=== PATIENT | male | born 2000 | race Caucasian/White ===

== ENCOUNTER 2021-03-05 10:46 | Inpatient (IN) ==
[2021-03-05] MEDS ORDERED: ONDANSETRON INJ 2 MG/ML 2 ML VIAL IV STA (11:58)
[2021-03-05] MEDS ORDERED: MoRPHine SULFATE 4 MG/ML 1 ML CARP\\VIAL IV STA ×2 (11:58→16:39)
[2021-03-05] MEDS ORDERED: cefTRIAXone SODIUM 2,000 MG/70 ML BAG IV STA (11:58)
[2021-03-05] MEDS ORDERED: SODIUM CHLORIDE 0.9% 1000ML 1,000 ML IV SCH (12:02)
--- NOTE | 2021-03-05 12:12 | Emergency Department Note ---
Impression & Plan Cellulitis of left elbow ED Provider Note CHIEF COMPLAINT: Left elbow pain and swelling x4 days HISTORY OF PRESENT ILLNESS: Patient is a [id number] 20-year-old male who presents the emergency department for evaluation of left elbow pain, redness and swelling. Symptoms started about 4 days ago, when he woke up with swelling in the left elbow. The swelling progressively worsened, he developed increased pain and redness, and had increased discomfort with movement of the elbow. He tried taking ibuprofen for discomfort. He currently rates his pain a 10/10. He does note that there was a small area at the tip of the elbow that was draining what looked like pus, he was covering this area with Neosporin and a Band-Aid. He denies any injury to the area, he did not fall, slip, scrape or bump the elbow. He does exercise and lifts weights frequently at a local gym. He denies fever, chills, nausea, vomiting or malaise. No prior history of skin infections or abscesses. No recent antibiotic use. He apparently got markedly worse in the last 12 to 24 hours, and was seen at [facility] this morning and referred to the emergency department for evaluation. REVIEW OF SYSTEMS: Review of systems as per HPI. All other systems reviewed were negative. 10 systems reviewed. PMH: Patient is otherwise healthy without chronic medical problems. Electronic medical records are reviewed and summarized as above/below. See Problem List. Tetanus is up-to-date. SOCIAL HISTORY: Patient is a [employer] student from [employer] who lives in a dorm with a roommate. Social EtOH, rare marijuana, denies IV drug use. Denies tobacco use. PHYSICAL EXAM: Vital Signs: Reviewed Nurse's notes. CONSTITUTIONAL: Patient is a nontoxic-appearing 20-year-old male who is awake and alert and in no acute distress. Vital signs are stable and he is afebrile. EYES: Pupils equal, round, reactive to light and accommodation. EOMs intact without nystagmus. Sclera are anicteric. CARDIOVASCULAR: Regular rate and rhythm. Peripheral pulses easily palpable. RESPIRATORY: Breath sounds equal and clear to auscultation without wheezes, rales, or rhonchi heard. Full and equal chest expansion without accessory muscle use or retractions. MUSCULOSKELETAL: Examination of the left elbow notes marked soft tissue swelling, erythema, increased warmth and cellulitic changes, centrally over the posterior elbow, extending up toward the triceps region and down the forearm slightly. Over the tip of the olecranon, there is a very small opening, with puslike drainage present. Elbow range of motion is limited secondary to pain. Hand, finger and shoulder range of motion are full. The left upper extremity is neurovascularly intact. There is lymphangitic streaking noted up the medial aspect of the arm toward the axilla. EMERGENCY DEPARTMENT COURSE: The patient was seen and assessed as above. Old records are reviewed. He presents to the emergency department for evaluation of left elbow pain, redness and swelling. On exam he appears to have a septic olecranon bursa with surrounding cellulitis. I did cleanse the area with normal saline solution, was able to express a small amount of pus from the opening over the olecranon process, and sent this off for Gram stain and culture. IV lock was initiated and laboratory studies were collected. CBC with differential, BMP, sed rate, CRP and blood cultures x2 were collected. X-ray of the left elbow was obtained, noting soft tissue swelling, no acute fractures or destructive lesions noted. He was treated with morphine 4 mg and Zofran 4 mg IV for pain, and given ceftriaxone 2 g IV after collection of cultures and blood work. A Covid/influenza/RSV swab was collected and was negative. Laboratory studies noted a 15,400 white count with left shift and bandemia noted. H&H is normal. ESR 21, CRP 2.46. Electrolytes are within normal limits. With the patient's permission, I did speak with his mother, Rolanda Hernandez, via telephone at [phone]. I discussed with her the pending ED work-up. Patient was reassessed after all of his laboratory studies and x-ray were back. He was told the results of his tests. I did speak with Romero Vidales PA-C with Dr. Young, who was on-call for orthopedics. They assessed the patient in the emergency department, and will admit to their service for IV antibiotics and further intervention as necessary. Please refer to orthopedic H&P and orders for further information. Differential diagnoses entertained included inflammatory versus septic olecranon bursitis, cellulitis, septic joint, DVT, superficial thrombophlebitis, necrotizing fasciitis, Lyme arthritis, among others. Past Med/Surg History Medical History No significant past medical history Surgical History S/P ACL reconstruction Social History Smoking Status: Never smoker Feels Safe at Home: Yes Allergies Allergies Allergy/AdvReac Type Severity Reaction Status Date / Time No Known Allergies Allergy Verified 03/05/21 11:58 Home Meds Home Medications Medication Instructions Recorded Confirmed No Known Home Medications 03/05/21 03/05/21 Results & Data (ED) Vital Signs Vital Signs - 24 hr 03/05/21 11:08 03/05/21 11:54 03/05/21 12:00 Temperature 36.8 C Temperature Source Oral Pulse Rate 81 Pulse Rate from SpO2 Sensor 69 69 Respiratory Rate 16 22 20 Blood Pressure 132/79 Blood Pressure Mean 96 Pulse Oximetry 98 98 98 Oxygen Delivery Method Room Air Room Air Room Air Sepsis Recent Fever Within 48 Hours No Sepsis New/Unexplained Change in Mental Status N/A Sepsis Action Taken by Nursing No Action Required 03/05/21 12:10 03/05/21 12:11 03/05/21 12:20 Temperature Temperature Source Pulse Rate 64 Pulse Rate from SpO2 Sensor 76 66 65 Respiratory Rate 17 20 23 Blood Pressure 171/80 H Blood Pressure Mean 110 Pulse Oximetry 99 99 99 Oxygen Delivery Method Room Air Room Air Room Air Sepsis Recent Fever Within 48 Hours Sepsis New/Unexplained Change in Mental Status Sepsis Action Taken by Nursing 03/05/21 12:30 03/05/21 12:40 03/05/21 12:50 Temperature Temperature Source Pulse Rate 65 62 69 Pulse Rate from SpO2 Sensor 65 Respiratory Rate 18 18 19 Blood Pressure 146/76 H Blood Pressure Mean 99 Pulse Oximetry 99 Oxygen Delivery Method Room Air Sepsis Recent Fever Within 48 Hours Sepsis New/Unexplained Change in Mental Status Sepsis Action Taken by Nursing 03/05/21 13:00 03/05/21 13:10 03/05/21 13:20 Temperature Temperature Source Pulse Rate 65 63 61 Pulse Rate from SpO2 Sensor Respiratory Rate 17 15 15 Blood Pressure 146/74 H Blood Pressure Mean 98 Pulse Oximetry 98 Oxygen Delivery Method Room Air Sepsis Recent Fever Within 48 Hours Sepsis New/Unexplained Change in Mental Status Sepsis Action Taken by Nursing 03/05/21 13:30 03/05/21 13:40 03/05/21 13:50 Temperature Temperature Source Pulse Rate 61 64 65 Pulse Rate from SpO2 Sensor Respiratory Rate 16 16 18 Blood Pressure 147/75 H Blood Pressure Mean 99 Pulse Oximetry 94 Oxygen Delivery Method Room Air Sepsis Recent Fever Within 48 Hours Sepsis New/Unexplained Change in Mental Status Sepsis Action Taken by Nursing 03/05/21 14:00 03/05/21 14:10 03/05/21 14:20 Temperature Temperature Source Pulse Rate 76 63 65 Pulse Rate from SpO2 Sensor Respiratory Rate 19 17 17 Blood Pressure 144/73 H Blood Pressure Mean 96 Pulse Oximetry 95 Oxygen Delivery Method Room Air Sepsis Recent Fever Within 48 Hours Sepsis New/Unexplained Change in Mental Status Sepsis Action Taken by Group Home Medications Current Medication List: was personally reviewed by me Laboratory Data Attestation: I reviewed the patient's lab results. Result diagrams: 03/05/21 11:29 03/05/21 11:29 Lab Results 03/05/21 03/05/21 03/05/21 Range/Units 11:29 11:29 11:29 WBC 15.48 H (4.8-10.8) K/uL RBC 4.73 (4.7-6.1) M/uL Hgb 15.7 (14.0-18.0) g/dL Hct 43.9 (42-52) % MCV 92.8 (80-100) fL MCH 33.2 (25-34) pg MCHC 35.8 (32-36) g/dL RDW Std Deviation 40.9 (36.4-46.3) fL RDW Coeff of Tl 12.0 (11.5-14.5) % Plt Count 302 (130-400) K/uL MPV 9.9 (7.4-10.4) fL Immature Gran % (Auto) 0.3 % Neut % (Auto) 73.0 % Lymph % (Auto) 13.1 % Dickey % (Auto) 10.3 % Eos % (Auto) 3.2 % Baso % (Auto) 0.1 % Neut # (Auto) 11.31 H (1.4-6.5) K/uL Lymph # (Auto) 2.03 (1.2-3.4) K/uL Dickey # (Auto) 1.59 H (0.11-0.59) K/uL Eos # (Auto) 0.49 (0-0.5) K/uL Baso # (Auto) 0.02 (0-0.2) K/uL Immature Gran # (Auto) 0.04 H (0.00-0.02) K/uL ESR 21 H (0-15) mm/hr Sodium 138 (136-145) mmol/L Potassium 4.4 (3.5-5.1) mmol/L Chloride 106 (98-107) mmol/L Carbon Dioxide 27 (21-32) mmol/L Anion Gap 5.0 (3-11) BUN 16 (7-18) mg/dl Creatinine 1.11 (0.6-1.4) mg/dl Est Cr Clr Drug Dosing 110.5 ml/min Est GFR ( Amer) 111.0 Est GFR (Non-Af Amer) 95.8 BUN/Creatinine Ratio 14.4 (10-20) Glucose 95 (70-99) mg/dl Calcium 9.1 (8.5-10.1) mg/dl C-Reactive Protein 2.46 H (0-0.29) mg/dl COVID-19 Eval Order SARS-CoV-2 (PCR) (Negative) Influenza Type A (PCR) (Neg) Influenza Type B (PCR) (Neg) RSV (RT-PCR) (Neg) 03/05/21 03/05/21 Range/Units 12:10 12:10 WBC (4.8-10.8) K/uL RBC (4.7-6.1) M/uL Hgb (14.0-18.0) g/dL Hct (42-52) % MCV (80-100) fL MCH (25-34) pg MCHC (32-36) g/dL RDW Std Deviation (36.4-46.3) fL RDW Coeff of Tl (11.5-14.5) % Plt Count (130-400) K/uL MPV (7.4-10.4) fL Immature Gran % (Auto) % Neut % (Auto) % Lymph % (Auto) % Dickey % (Auto) % Eos % (Auto) % Baso % (Auto) % Neut # (Auto) (1.4-6.5) K/uL Lymph # (Auto) (1.2-3.4) K/uL Dickey # (Auto) (0.11-0.59) K/uL Eos # (Auto) (0-0.5) K/uL Baso # (Auto) (0-0.2) K/uL Immature Gran # (Auto) (0.00-0.02) K/uL ESR (0-15) mm/hr Sodium (136-145) mmol/L Potassium (3.5-5.1) mmol/L Chloride (98-107) mmol/L Carbon Dioxide (21-32) mmol/L Anion Gap (3-11) BUN (7-18) mg/dl Creatinine (0.6-1.4) mg/dl Est Cr Clr Drug Dosing ml/min Est GFR ( Amer) Est GFR (Non-Af Amer) BUN/Creatinine Ratio (10-20) Glucose (70-99) mg/dl Calcium (8.5-10.1) mg/dl C-Reactive Protein (0-0.29) mg/dl COVID-19 Eval Order CovFluRsv at [facility] SARS-CoV-2 (PCR) NEGATIVE (Negative) Influenza Type A (PCR) Negative (Neg) Influenza Type B (PCR) Negative (Neg) RSV (RT-PCR) Negative (Neg) Administered Medications Sodium Chloride (Nss 1000ml) 1,000 mls @ 250 mls/hr IV .Q4H SUHA Stop: 04/04/21 12:14 Last Admin: 03/05/21 12:49 Dose: 250 mls/hr Documented by: [id number] Discontinued Medications Ceftriaxone Sodium (Rocephin) 2,000 mg in 70 mls @ 140 mls/hr IV NOW STA Stop: 03/05/21 12:27 Last Infusion: 03/05/21 12:48 Dose: 0 mls/hr Documented by: [id number] Admin: 03/05/21 12:09 Dose: 140 mls/hr Documented by: [id number] Sodium Chloride (Nss 1000ml) 1,000 mls @ 999 mls/hr IV .Q1H1M SUHA Stop: 03/05/21 13:02 Last Infusion: 03/05/21 14:13 Dose: 0 mls/hr Documented by: [id number] Admin: 03/05/21 12:49 Dose: 999 mls/hr Documented by: [id number] Morphine Sulfate (Morphine Sulfate 4 Mg/Ml 1 Ml Carp\Vial) 4 mg IV NOW STA Stop: 03/05/21 11:59 Last Admin: 03/05/21 12:09 Dose: 4 mg Documented by: [id number] Ondansetron HCl (Ondansetron Inj 2 Mg/Ml 2 Ml Vial) 4 mg IV NOW STA Stop: 03/05/21 11:59 Last Admin: 03/05/21 12:09 Dose: 4 mg Documented by: [id number] Imaging Data Attestation: I personally reviewed and interpreted this imaging study as follows: Radiologist's Impression: Elbow X-Ray 03/05/21 11:58 XR elbow LT min 3V routine CLINICAL HISTORY: CELLULITIS/BURSITIS COMPARISON: None. DISCUSSION: No fractures or dislocations are visualized. There is posterior soft tissue edema. There is no radiographic evidence of joint effusion. No destructive lesions are evident. IMPRESSION: 1. Posterior soft tissue edema 2. No acute fractures 3. No destructive lesions identified ACT 112: Negative or not required by law. Electronically signed by: True Al M.D. 03/05/2021 12:42 PM Discharge Plan Visit Data Chief Complaint: Elbow Injury/Pain Stated Complaint: LEFT ELBOW INFECTION ED Provider: Jane Babb ED Midlevel Provider: Elsie Watkins Discharge Problem: Cellulitis of left elbow Patient Disposition: Admitted As Inpatient Forms Stand Alone Forms: My My[employer] Prescriptions Prescriptions: No Action No Known Home Medications RF: 0 Referrals Referrals: [facility] [Primary Care Provider] -
[2021-03-05 12:40] LABS: Basophils # (auto) 0.02 K/uL (0-0.2); Basophils % (auto) 0.1 %; Eosinophils # (auto) 0.49 K/uL (0-0.5); Eosinophils % (auto) 3.2 %; Hematocrit (blood only) 43.9 % (42-52); Hemoglobin 15.7 g/dL (14.0-18.0); Immature Granulocytes # (auto) 0.04 K/uL (0.00-0.02); Immature Granulocytes % (auto) 0.3 %; Lymphocytes # (auto) 2.03 K/uL (1.2-3.4); Lymphocytes % (auto) 13.1 %; Mean Corpuscular Hemoglobin 33.2 pg (25-34); Mean Corpuscular Hgb Conc 35.8 g/dL (32-36); Mean Corpuscular Volume 92.8 fL (80-100); Mean Platelet Volume 9.9 fL (7.4-10.4); Monocytes # (auto) 1.59 K/uL (0.11-0.59); Monocytes % (auto) 10.3 %; Neutrophils # (auto) 11.31 K/uL (1.4-6.5); Platelet Count 302 K/uL (130-400); RDW Standard Deviation 40.9 fL (36.4-46.3); Red Blood Count 4.73 M/uL (4.7-6.1); White Blood Count 15.48 K/uL (4.8-10.8)
--- NOTE | 2021-03-05 12:43 | XRay Report ---
XR elbow LT min 3V routine CLINICAL HISTORY: CELLULITIS/BURSITIS COMPARISON: None. DISCUSSION: No fractures or dislocations are visualized. There is posterior soft tissue edema. There is no radiographic evidence of joint effusion. No destructive lesions are evident. IMPRESSION: 1. Posterior soft tissue edema 2. No acute fractures 3. No destructive lesions identified ACT 112: Negative or not required by law. Electronically signed by: True Al M.D. 03/05/2021 12:42 PM
[2021-03-05] MEDS: SODIUM CHLORIDE 0.9% 1000ML 1,000 ML IV SCH ×2 (12:49→20:10)
[2021-03-05 13:11] LABS: Influenza A virus by PCR Negative (Neg); Influenza B virus by PCR Negative (Neg); RSV by PCR Negative (Neg); SARS CoV2 RNA(COVID-19) InHosp NEGATIVE (Negative)
[2021-03-05 13:13] LABS: BUN Creatinine Ratio 14.4 (10-20); C Reactive Protein 2.46 mg/dl (0-0.29); Calcium 9.1 mg/dl (8.5-10.1); Creatinine Clr Calc Pharmacy 110.5 ml/min; Est GFR (Non-African American) 95.8
[2021-03-05 13:23] LABS: Potassium 4.4 mmol/L (3.5-5.1)
--- NOTE | 2021-03-05 16:20 | History & Physical Report ---
Date of Service March 05, 2021 Assessment & Plan (1) Cellulitis of left elbow: He was seen in the ER by Dr. Young. We did aspirate the olecranon bursa and got just a minimal amount of blood out of it. We will still send this off for gram stain and cultures. There is also a culture swab pending from the ER. We will admit him tonight for IV antibiotics. It does not look like he needs an I and D yet at this time but we will watch this closely. We will make him npo after midnight just in case. We will start some vancomycin and consult pharmacy. Arm sling for comfort. This was discussed with his parents as well. History of Present Illness Chief Complaint: . left elbow pain Primary Care Provider: [facility] . 20 y/o right hand dominant male, student at [employer], from [place], presented to the ER with left elbow pain and swelling. He feels slightly sick. Denies fever. Has had elbow pain for about 4 days. Denies injury, or any puncture to the skin. There is one area that he has noticed some purulent drainage from. No other complaints. Allergies Allergy/AdvReac Type Severity Reaction Status Date / Time No Known Allergies Allergy Verified 03/05/21 11:58 Home Medications Medication Instructions Recorded Confirmed Type No Known Home Medications 03/05/21 03/05/21 History Past Med/Surg History Medical History No significant past medical history Surgical History S/P ACL reconstruction Social History Smoking Status: Never smoker Feels Safe at Home: Yes Review of Systems All systems reviewed & are unremarkable except as noted in HPI & below. Physical Exam . Constitutional well developed and well nourished; no acute distress Respiratory normal respiratory effort Cardiovascular Vessels: radial pulses present Extremities: normal capillary refill Musculoskeletal swelling and erythema of the posterior left elbow. He is tender to palpation around the left elbow and has limited range of motion. There is one pustule that we were able to express some purulent drainage from. Skin + erythema Neurologic normal touch/pain/proprioception Psychiatric Orientation: alert and oriented x 3 Results & Data Results & Data Laboratory Results . Diagnostic Findings . xrays and labs reviewed. ESR, CRP, and WBC slightly elevated. xray was normal. PG Care Time/CCT Total # of Minutes Spent Total Time Spent with Patient: Total time spent is greater than 50% in coordination of care (as documented) at patient's floor/unit and/or counseling patient: Coding Level of Care Code 79206 Initial Inpt Care Lvl 2 Diagnoses Cellulitis of left elbow L03.114
--- NOTE | 2021-03-05 18:47 | Hospitalist Consultation ---
Date of Consultation March 05, 2021 Assessment & Plan (1) Cellulitis of left elbow: Previously healthy 20 yo right handed male presents with atraumatic acute progressive erythema, swelling, pain and drainage from the left elbow consistent with septic bursitis with cellulitis improving since starting Ceftriaxone WBC 15, HR and BP wnl XR w/ soft tissue swelling and no destructive lesions gram stain w/ no organisms and moderate WBC - MRI ordered - continue Ceftriaxone, given patient is immunocompetent, does not have systemic signs of toxicity, has improved with antibiotic therapy and the infection is not associated with a medical devices - continue IVF - potential drainage with Orthopedics if warranted Code: full Diet: regular DVT: ambulation Supervising Physician Co-Signing Physician Notes I personally saw and examined the patient. I verified all nixon points and agree with Dr Cody Steiner MD with the following exceptions and/or additions: 20 yo male 4 day history of initially bursitis which he expressed pus from then subsequently developed surrounding cellulitis O/E non septic appearing. erythema already improved after ceftriaxone given in ER earlier in the day. No longer tracking up arm as patient previously described and marked area. Left arm cellulitis and olecranon septic bursitis - ceftriaxone 2g IV daily should be adequate. No history of MRSA or immunocompromised state to warrant MRSA coverage therefore vancomycin discontinued. Will await surgical gram stain and cultures for further antibiotic selection. History of Present Illness Reason for Consultation: Antibiotic management Requesting Physician: Regan Vidales PA-C Attending Physician: Dr Gregorio Young MD History of Present Illness Greg Hernandez is a right hand dominant male with 4 days of progressively worsening left elbow pain, redness and swelling. He initially noted mild swelling and sore elbow. He used rubbing alcohol and neosporin on the area but noted that it continued to worsen specifically over the last 1-2 days. He had no prior injury but did not he had a pimple in that area. he did have some numbness in his 3rd 4th and 5th fingers and pain with closing his hand. He noted that he had pain along the biceps that worsened over the last 1-2 hours and he related to having his hand up. He is UTD on his vaccinations. His birthday is on and was concerned with how long he would need to be in the hospital for treatment. Social: comes from [employer] [place], sexually active with 2 female partners in the last 6 months using condoms. Vaping 1 jennifer pod over 1-2 weeks. ETOH use includes 1-2 times per week approx. 8 drinks. marijuana use, no IVDU. pMHx.: none Meds: none sugery: ACL repair while playing lacrosse Family Hx.: denies family history of recurrent infections Allergies Allergy/AdvReac Type Severity Reaction Status Date / Time No Known Allergies Allergy Verified 03/05/21 11:58 Home Medications Medication Instructions Recorded Confirmed Type No Known Home Medications 03/05/21 03/05/21 History Patient History Medical History No significant past medical history Surgical History S/P ACL reconstruction Social History Smoking Status: Current some day smoker Tobacco Type: E-cigarettes / Vaping Do You Dip or Chew Tobacco: No; Hx Alcohol Use: No Hx Substance Use: No Preferred Language: Chinese Communication Ability: Effective Weapons Designer Required: No Beliefs That Will Affect Care: None marital status: Current Living Situation: Alone Other Information That Helps Us Care for You: No Feels Safe at Home: Yes Safety Concerns: Feels Safe At This Time Assistive Devices: None Review of Systems Review of Systems: Constitutional: denies fevers, chills, nausea, vomiting admits fatigue, diaphoresis, weight change Head: denies trauma, LOC, confusion, lightheadedness Neurologic: denies syncope admits numbness and tingling and pre-syncope assoc. with pain ENT: denies rhinorrhea, stuffiness, sneezing Cardiac: denies chest pain, palpitations Pulm.: denies cough, shortness of breath GI: denies diarrhea, constipation Physical Exam Constitutional: WD/WN, vitals as above Eyes: PERRL, conjunctivae normal, anicteric sclerae ENMT: external ear and nose normal, oropharynx normal Neck: normal visual inspection Respiratory: normal respiratory effort, lungs clear to auscultation Cardiovascular: RRR, no murmur, no edema Gastrointestinal (Abdomen): normal bowel sounds, soft, nontender, no hepatosplenomegaly Musculoskeletal: Left elbow: - swelling with warmth slightly pink diffusely without any tracking or sharp boarders - tender to palpation throughout the elbow and along the biceps - pulse 2+ radial - sensation intact in the median, ulnar and radial distribution - decreased grasp 4/5 (grimace while attempting) Results & Data Results & Data [facility] Vital Signs (Past 12 Hours) Vital Signs Temp Pulse Resp BP Pulse Ox 03/05/21 17:30 84 22 136/71 96 03/05/21 17:00 82 23 135/63 96 03/05/21 16:30 79 19 173/76 H 03/05/21 16:00 77 19 160/77 H 03/05/21 15:30 73 20 145/73 H 96 03/05/21 15:00 76 20 160/85 H 03/05/21 14:30 74 18 149/83 H 03/05/21 14:20 65 17 03/05/21 14:10 63 17 03/05/21 14:00 76 19 144/73 H 95 03/05/21 13:50 65 18 03/05/21 13:40 64 16 03/05/21 13:30 61 16 147/75 H 94 03/05/21 13:20 61 15 03/05/21 13:10 63 15 03/05/21 13:00 65 17 146/74 H 98 03/05/21 12:50 69 19 03/05/21 12:40 62 18 03/05/21 12:30 65 18 146/76 H 99 03/05/21 12:20 64 23 99 03/05/21 12:11 20 171/80 H 99 03/05/21 12:10 17 99 03/05/21 12:00 20 98 03/05/21 11:54 22 98 03/05/21 11:08 36.8 C 81 16 132/79 98 Diagnostic Findings XR elbow LT min 3V routine IMPRESSION: 1. Posterior soft tissue edema 2. No acute fractures 3. No destructive lesions identified Medications Administered ER medications given: Ceftriaxone 2g IV Morphine 4 mg IV x2 NSS 1L bolus Ondansetron 4 mg IV CBC Results Results Complete Blood Count Results: RBC 4.49 M/uL (4.7-6.1) L 03/06/21 WBC 13.99 K/uL (4.8-10.8) H 03/06/21 Hgb 14.6 g/dL (14.0-18.0) 03/06/21 Hct 41.7 % (42-52) L 03/06/21 Plt Count 263 K/uL (130-400) 03/06/21 Chemistry ([facility]) Results [facility] Results: Sodium 135 mmol/L (136-145) L 03/06/21 Potassium 4.1 mmol/L (3.5-5.1) 03/06/21 Chloride 104 mmol/L (98-107) 03/06/21 BUN 10 mg/dl (7-18) 03/06/21 Creatinine 1.03 mg/dl (0.6-1.4) 03/06/21 Glucose 101 mg/dl (70-99) H 03/06/21 Resident Activity Tracking Resident Involvement: Resident Care Provided Care Provided: Adult [facility]
[2021-03-05] MEDS ORDERED: diphenhydrAMINE Capsule 25 MG CAP PO PRN (19:19)
[2021-03-05] MEDS ORDERED: VANCOMYCIN CONSULT ACTIVE PRN ×2 (19:19)
[2021-03-05] MEDS ORDERED: VANCOMYCIN HCL 2,000 MG in SODIUM CHLORIDE 0.9% 500 ML IV ONE (20:00)
[2021-03-05] MEDS: oxyCODONE HCL IR 5 MG TAB (IMMEDIATE RELEASE) PO PRN (20:16)
[2021-03-06] MEDS: oxyCODONE HCL IR 5 MG TAB (IMMEDIATE RELEASE) PO PRN ×4 (01:26→23:00)
[2021-03-06] MEDS ORDERED: VANCOMYCIN HCL 1,250 MG in SODIUM CHLORIDE 0.9% 250 ML IV SCH (06:00)
[2021-03-06 06:44] LABS: Basophils # (auto) 0.03 K/uL (0-0.2); Basophils % (auto) 0.2 %; Eosinophils # (auto) 0.39 K/uL (0-0.5); Eosinophils % (auto) 2.8 %; Hematocrit (blood only) 41.7 % (42-52); Hemoglobin 14.6 g/dL (14.0-18.0); Immature Granulocytes # (auto) 0.03 K/uL (0.00-0.02); Immature Granulocytes % (auto) 0.2 %; Lymphocytes # (auto) 3.16 K/uL (1.2-3.4); Lymphocytes % (auto) 22.6 %; Mean Corpuscular Hemoglobin 32.5 pg (25-34); Mean Corpuscular Volume 92.9 fL (80-100); Mean Platelet Volume 9.5 fL (7.4-10.4); Monocytes # (auto) 1.65 K/uL (0.11-0.59); Monocytes % (auto) 11.8 %; Neutrophils # (auto) 8.73 K/uL (1.4-6.5); Neutrophils % (auto) 62.4 %; Platelet Count 263 K/uL (130-400); RDW Coefficient of Variation 12.1 % (11.5-14.5); RDW Standard Deviation 41.1 fL (36.4-46.3); Red Blood Count 4.49 M/uL (4.7-6.1); White Blood Count 13.99 K/uL (4.8-10.8)
[2021-03-06 07:17] LABS: BUN Creatinine Ratio 9.3 (10-20); Calcium 8.4 mg/dl (8.5-10.1); Creatinine Clr Calc Pharmacy 119.1 ml/min; Est GFR (African American) 121.5; Est GFR (Non-African American) 104.8; Potassium 4.1 mmol/L (3.5-5.1)
[2021-03-06] MEDS ORDERED: VANCOMYCIN CONSULT ACTIVE PRN (07:58)
[2021-03-06] MEDS: ceFAZolin 2000MG 2,000 MG/15 ML SYR IV SCH ×3 (08:29→23:00)
[2021-03-06] MEDS ORDERED: VANCOMYCIN HCL 1,500 MG in SODIUM CHLORIDE 0.9% 500 ML IV SCH (08:30)
--- NOTE | 2021-03-06 09:10 | Magnetic Resonance Report ---
MR elbow LT wo con CLINICAL HISTORY: 20 years-old Male with cellulitis to elbow. Acute pain and swelling of the left el bow with reported cellulitis. COMPARISON: Left abnormal radiographs of same day. TECHNIQUE: Multiplanar, multi sequence MRI of the left elbow was performed without intravenous contra st. FINDINGS: Motion degraded exam. The study is also limited secondary to patient positioning. LATERAL COLLATERAL LIGAMENT: The lateral collateral ligaments including the lateral ulnar collateral ligament are intact and unremarkable in appearance. COMMON EXTENSOR TENDON: The common extensor origin from the lateral epicondyle is suboptimally visua lized secondary to large amount of adjacent edema however appears intact. No evidence of tendinosis or tear to suggest lateral epicondylitis. MEDIAL COLLATERAL LIGAMENT: The ulnar collateral ligament, including the anterior and posterior band s, is intact and unremarkable in appearance. COMMON FLEXOR TENDON: The common flexor origin from the medial epicondyle is normal in appearance. No evidence of tendinosis or tear to suggest medial epicondylitis. MUSCLES: The biceps and brachialis tendon insertions are normal in appearance. Mild intramuscular ed leslee is noted within the distal aspect of the long head of the triceps with additional mild edema note d within the flexor carpi ulnaris (image 31 series 16). The triceps tendon insertion on the olecranon is also unremarkable in appearance. ULNAR NERVE: The ulnar nerve is normally located in the ulnar sulcus and is unremarkable in appearan ce. BONE MARROW: Bone marrow is normal in signal without evidence of fracture, marrow contusion or marro w occupying lesion. SOFT TISSUES: There is extensive subcutaneous edema of the elbow, distal upper arm and proximal fore arm which is most pronounced dorsally with associated deep tissue edema tracking along the myofascial planes. No loculated fluid collection. IMPRESSION: 1. Limited exam as above. 2. Extensive subcutaneous edema of the distal upper arm, elbow and proximal forearm, most pronounced dorsally suggestive of cellulitis. No loculated abscess identified. 3. Mild intramuscular edema of the distal long head of the triceps and flexor carpi ulnaris may refle ct associated myositis versus acute or subacute muscle strain. 4. No acute fracture, bone marrow edema or osseous erosions. 5. No joint effusion. ACT 112: Negative or not required by law. The above report was generated using voice recognition software. It may contain grammatical, syntax o r spelling errors. Dictated: 03/06/2021 8:14 AM Transcribed: 03/06/2021 8:46 AM Carmela [id number] [email or web address] Electronically signed by: Tony Armendariz M.D. 03/06/2021 9:08 AM
--- NOTE | 2021-03-06 09:19 | Progress Notes ---
DATE: 03/06/2021 SUBJECTIVE: A 20-year-old male admitted yesterday with a left elbow cellulitis and possible septic olecranon bursitis. He is doing a bit better this morning. He has been on some IV antibiotics. Still painful, but slightly improved. No new complaints. OBJECTIVE: VITAL SIGNS: Temperature 36.5. Vital signs stable. EXTREMITIES: Examination of the left arm reveals the cellulitis to be significantly improved. Swelling is improved as well. Just a little bit more just thickening and stiffness of the soft tissues. Less bogginess. Elbow motion is about 15 degrees short of full extension to 90 degrees of flexion. There are no signs of joint effusion. No further drainage or purulence. MRI: I did review his MRI. I reviewed this with the radiologist. It did not feel there are any signs of pus accumulation or abscess pockets. No elbow joint effusion. No signs of bone involvement. ASSESSMENT: A 20-year-old male with left elbow/upper extremity cellulitis. Does not look to be any localized fluid collections or pus. It does seem to be significantly improved just even after 12 hours of antibiotics. PLAN: We are going to keep him in the hospital today for some additional IV antibiotics. If he make continued improvements, we can hopefully discharge him on p.o. antibiotics. If the area of pus or purulence does localize, he will obviously need an irrigation and debridement. I think that is unlikely at this time.
--- NOTE | 2021-03-06 10:21 | Pharmacy Report ---
Pharmacy Abx Initial Consult - Date of Service March 06, 2021 - Pharmacy Dosing Scope Date of Consult: 03/06 Consultation requested by: Dr. Bejarano Pharmacy is consulted to initiate vancomycin IV/PO dosing therapy, order appropriate labs and adjust drug dose/frequency. - Subjective The patient is a 20 year old M admitted on 03/05/21 18:48. - Objective Height: 5 ft 10 in Weight: 80 kg Vital Signs (Past 12hrs): Vital Signs Temp Pulse Pulse Resp BP Pulse Ox 03/06/21 08:34 71 139/76 94 03/06/21 07:06 36.5 C 71 16 124/74 97 Lab Results (24hrs): Laboratory Tests (24 Hours) 03/06/21 03/06/21 03/05/21 06:22 06:22 11:29 WBC 13.99 H Neut # (Auto) 8.73 H ESR 21 H Creatinine 1.03 Est Cr Clr Drug Dosing 119.1 C-Reactive Protein 03/05/21 03/05/21 11:29 11:29 WBC 15.48 H Neut # (Auto) 11.31 H ESR Creatinine 1.11 Est Cr Clr Drug Dosing 110.5 C-Reactive Protein 2.46 H Micro Results: 03/05/21 Unknown Gram Stain - Final Elbow,Left 03/05/21 11:55 Gram Stain - Final Elbow,Left 03/05/21 12:39 Aerobic Blood Culture - Pending Blood Anaerobic Blood Culture - Pending 03/05/21 11:29 Aerobic Blood Culture - Pending Blood Anaerobic Blood Culture - Pending - Assessment & Plan Assessment 20 year old M [] Plan Vancomycin/cefazolin for treatment of left elbow bursitis/cellulitis. Cultures growing staph sp. Vancomycin continued for MRSA coverage until resulted. Ceftriaxone adjusted to cefazolin. Vancomycin IV * Patient meets criteria for vancomycin AUC dosing nomogram AUC/NANI is the preferred PK/PD target for vancomycin Target AUC/NANI = 400-600 AUC guided dosing is effective and associated with decreased risk of nephrotoxicity Will order trough level prior to 4th maintenance dose. Pharmacy will continue to follow and will adjust dose/frequency as necessary. Thank you.
--- NOTE | 2021-03-06 11:14 | Billing Data ---
Date of Service March 05, 2021 Coding Level of Care Code 40854 Inpt Consult Level 4 History Detailed Exam Detailed Medical Decision Making Low Complexity
[2021-03-06] MEDS ORDERED: cefTRIAXone SODIUM 2,000 MG in DEXTROSE 5% 50 ML IV SCH (12:00)
--- NOTE | 2021-03-06 14:49 | Hospitalist Progress Note ---
Date of Service March 06, 2021 Assessment & Plan (1) Cellulitis of left elbow: MRI on 03/05 showed extensive cellulitis as well as "mild intramuscular edema of the distal long head of the triceps and flexor carpi ulnaris may reflect associated myositis." - Continue vanc/ceftriaxone until wound and aspiration culture have sensitivities. Community MRSA widespread enough that I feel MRSA coverage has few downsides until proven negative. Admission and Anticipated Discharge Date Admission Date: March 05, 2021 Subjective Feels it is doing better. No major concerns at present. Reports no fevers/chills, chest pain, shortness of breath, abdominal pain, nausea, or vomiting. Physical Exam Constitutional: WD/WN, vitals as above Eyes: EOM intact bilaterally; no conjunctival abnormality ENMT: external ear and nose normal, oropharynx normal Neck: trachea midline, no thyromegaly normal visual inspection Respiratory: normal respiratory effort, lungs clear to auscultation no respiratory distress Cardiovascular: RRR, no murmur, no edema Gastrointestinal (Abdomen): Inspection/Auscultation: abdomen normal to inspection; abdomen not distended Musculoskeletal: no cyanosis or clubbing, extremities motor strength 5/5 Skin: no rashes, warm and dry + erythema (Over left elbow) Neurologic: moves all extremities and awake Psychiatric: Orientation: alert, oriented to person and cooperative Results & Data Results & Data ([facility]) Vital Signs (Past 12 Hours) Vital Signs Temp Pulse Pulse Resp BP Pulse Ox 03/06/21 08:34 71 139/76 94 03/06/21 07:06 36.5 C 71 16 124/74 97 PG Care Time/CCT Total # of Minutes Spent Total Time Spent with Patient: Total time spent is greater than 50% in coor dination of care (as documented) at patient's floor/unit and/or counseling patient: Coding Level of Care Code 20668 Subseq Hosp Care Lvl 2 Diagnoses Cellulitis of left elbow L03.114
[2021-03-06] MEDS: ACETAMINOPHEN 325 MG TAB PO PRN ×2 (15:30→23:00)
[2021-03-06] MEDS: VANCOMYCIN HCL 1,250 MG in SODIUM CHLORIDE 0.9% 250 ML IV SCH (18:23)
[2021-03-07] MEDS: VANCOMYCIN HCL 1,250 MG in SODIUM CHLORIDE 0.9% 250 ML IV SCH ×2 (02:59→10:14)
[2021-03-07] MEDS ORDERED: VANCOMYCIN TROUGH ONE ×2 (05:30→09:30)
[2021-03-07] MEDS: oxyCODONE HCL IR 5 MG TAB (IMMEDIATE RELEASE) PO PRN (07:30)
[2021-03-07] MEDS: ceFAZolin 2000MG 2,000 MG/15 ML SYR IV SCH (07:43)
--- NOTE | 2021-03-07 08:59 | Progress Notes ---
DATE: 03/07/2021 SUBJECTIVE: A 20-year-old male admitted with a left elbow cellulitis. He is doing much better. Pain is improved. Elbow motion is improved. No fevers. No further drainage. PHYSICAL EXAMINATION: EXTREMITIES: Shows a left elbow reveals the cellulitis to be markedly resolved. Still some mild swelling, but much improved. No signs of drainage. He is neurologically intact. ASSESSMENT: A 20-year-old male admitted with a left elbow cellulitis significantly improved. Still not out of the norman yet or completely treated, but certainly on his way. PLAN: We are going to change him to oral antibiotics and discharge him today. He will need followup in about 2 weeks. We will cover both methicillin-sensitive and methicillin-resistant staph. We will try and give him any further IV antibiotics that are dosed this morning and then discharge after that.
[2021-03-07] MEDS ORDERED: SULFAMETHOXAZOLE/TRIMETHOPRIM DS 800/160MG TAB PO SCH (09:00)
[2021-03-07 09:38] LABS: Hematocrit (blood only) 39.8 % (42-52); Hemoglobin 13.9 g/dL (14.0-18.0); Mean Corpuscular Hemoglobin 32.6 pg (25-34); Mean Corpuscular Hgb Conc 34.9 g/dL (32-36); Mean Corpuscular Volume 93.4 fL (80-100); Mean Platelet Volume 9.2 fL (7.4-10.4); Platelet Count 252 K/uL (130-400); RDW Coefficient of Variation 11.8 % (11.5-14.5); RDW Standard Deviation 39.8 fL (36.4-46.3); Red Blood Count 4.26 M/uL (4.7-6.1); White Blood Count 10.41 K/uL (4.8-10.8)
[2021-03-07 10:06] LABS: BUN Creatinine Ratio 7.7 (10-20); Calcium 9.3 mg/dl (8.5-10.1); Creatinine Clr Calc Pharmacy 107.6 ml/min; Est GFR (African American) 107.5; Est GFR (Non-African American) 92.7; Potassium 3.8 mmol/L (3.5-5.1)
--- NOTE | 2021-03-07 11:49 | Hospitalist Progress Note ---
Date of Service March 07, 2021 Assessment & Plan (1) Cellulitis of left elbow: MRI on 03/05 showed extensive cellulitis as well as "mild intramuscular edema of the distal long head of the triceps and flexor carpi ulnaris may reflect associated myositis." -Treated with vancomycin and Ancef. MRSA isolated. He will be discharged home today, March 07, on oral antibiotics by the primary service. DVT prophylaxis: Ambulation Disposition: Home today, March 07, on oral antibiotics per primary service Admission and Anticipated Discharge Date Admission Date: March 05, 2021 Subjective Alert and oriented. Orthopedics entry noted. He will be discharged home today on oral antibiotics. Aspirate from the left elbow is growing MRSA. Review of Systems Review of Systems: All systems reviewed & are unremarkable except as noted in HPI & below Physical Exam Physical Exam: General-alert and oriented x3, no fevers, no chills HEENT-head atraumatic and normocephalic, TMs intact bilaterally, pupils equal and reactive to light, extraocular muscles intact Neck-no lymphadenopathy or thyromegaly, trachea midline Chest-clear to auscultation percussion. No rales wheezing or rhonchi Cardiac-regular rate and rhythm, normal S1 and S2, no murmurs Abdomen-normal bowel sounds, nontender, no hepatosplenomegaly Extremities-no cyanosis, clubbing, or edema. Resolving cellulitis left elbow area Neuro-cranial nerves II through XII intact, motor and sensory function within normal limits, strength symmetrical 5/5, no focal deficits Psych-normal affect, normal mood Results & Data Results & Data ([facility]) Vital Signs (Past 12 Hours) Vital Signs Temp Pulse Pulse Resp BP Pulse Ox 03/07/21 10:56 36.7 C 60 78 15 172/70 H 92 03/07/21 07:14 36.7 C 60 15 172/70 H 92 Laboratory Results 03/07/21 09:19 03/07/21 09:19 PG Care Time/CCT Total # of Minutes Spent Total Time Spent with Patient: Total time spent is greater than 50% in coordination of care (as documented) at patient's floor/unit and/or counseling patient: Coding Level of Care Code 49769 Subseq Hosp Care Lvl 3 Diagnoses Cellulitis of left elbow L03.114
[2021-03-07] MEDS ORDERED: cephALEXin 500 MG CAP PO SCH (13:00)
--- NOTE | 2021-03-09 15:53 | Discharge Summary ---
Date of Service March 09, 2021 Discharge Data Consultations 03/05/21 16:00 ED Decision to Admit Stat 03/05/21 17:25 Consult Hospitalist Routine Hospital Course (1) Cellulitis of left elbow: This patient is a 21 year old male admitted on 03/05/21 with left elbow cellulitis. Aspiration was attempted in the ER and this fluid was sent for gram stain and cultures. Hospitalist service was consulted for assistance with antibiotics. He did initially receive IV vancomycin and this was eventually switched to ceftriaxone. He did have cultures done from an elbow aspiration which did then grow MRSA. He did show improvement in his symptoms and did not require surgical intervention. His vital signs were monitored during his hospital stay and remained stable, he was afebrile. There were no complications during his hospital stay. He was discharged home on 03/07/21 with printed discharge instructions as well as prescriptions for keflex and bactrim. He should follow up with Dr. Young in approximately 2 weeks. Coding Level of Care Code None Diagnoses Cellulitis of left elbow L03.114
== END 2021-03-07 12:15 | disposition home or self-care (01) | DRG 558 ==
LOC: ED 10:46 → EDINP 18:25 → SUATTDRO 18:48 → EDINP 18:48 → 3E 20:21